=== PATIENT | female | born 1965 | race Caucasian/White ===

== ENCOUNTER → 2016-07-28 | Outpatient (CLI) | payer BC, OTHER ==
[~2016-07-28] MED LIST: AMBIEN10 MG PO; ATIVAN1 MG PO; ATIVAN2 MG PO; BACTRIM DS 8001 TAB PO; CALAN80 MG PO; CELEXA40 MG PO; CEPHALEXIN500 M1 PO; CHANTIX1 MG PO; CLONAZEPAM0.5 MG PO; CLOPIDOGREL; COQ10150 MG PO; DILAUDID 2MG TAB2 MG PO; DILAUDID 4MG TAB4 MG PO; DOXYCYCLINE 10100 MG PO; EFFEXOR PO; ELAVIL50 MG PO; ELITE MAGNESIUM1 TAB PO; FLEXERIL; FLONASE NASAL S16 GM NS; GRALISE600 MG PO; HYDROCODONE/APAP PO; KETOROLAC10 MG PO; LAMICTAL 25MG T25 MG PO; LAMICTAL ODT200 MG MM; LORTAB 5/500 501 TAB PO; MIDRIN; NORCO 325 MG-51 TAB PO; PHENERGAN 25 TA25 MG PO; PHENTERMINE; PRILOSEC 20MG20 MG PO; TOPAMAX 25MG25 M1 PO; TOPAMAX 25MG25 MG PO; TOPAMAX100 MG PO; TOPAMAX50 MG PO; TRAZODO50 MG PO; VERAPAMIL HCL80 MG PO; VITAMIN B2100 MG PO; ZOFRAN 4MG T4 MG/TAB PO; ZOMIG5 MG PO; ZONISAMIDE50 MG PO; [UNRECOGNIZED DRUG - OTHER] PO
== END ==
LOC: BHSO 15:31
DX: F41.1 Generalized anxiety disorder (principal)

== ENCOUNTER → 2016-12-08 | Outpatient (CLI) | payer BC, OTHER | LOC: BHSO 14:52 | DX: F31.73 Bipolar disorder, in partial remission, most recent episode manic (principal) ==

== ENCOUNTER → 2017-05-07 | Outpatient (CLI) | payer BC, OTHER | LOC: BHSO 14:46 | DX: F41.1 Generalized anxiety disorder (principal) | CPT/HCPCS: G0463 ==

== ENCOUNTER → 2017-08-13 | Outpatient (CLI) | payer BC, OTHER | LOC: BHSO 15:43 | DX: F31.81 Bipolar II disorder (principal) | CPT/HCPCS: G0463 ==

== ENCOUNTER → 2018-04-11 | Outpatient (CLI) | payer BC, OTHER | LOC: BHSO 07:51 | DX: F33.42 Major depressive disorder, recurrent, in full remission (principal) | CPT/HCPCS: G0463 ==

== ENCOUNTER → 2018-10-11 | Outpatient (CLI) | payer BC, OTHER | LOC: BHSO 10:46 | DX: F33.42 Major depressive disorder, recurrent, in full remission (principal) | CPT/HCPCS: G0463 ==

== ENCOUNTER → 2019-04-06 | Outpatient (CLI) | payer BC, OTHER | LOC: BHSO 08:39 | DX: F33.42 Major depressive disorder, recurrent, in full remission (principal) | CPT/HCPCS: G0463 ==

== ENCOUNTER → 2019-10-03 | Outpatient (CLI) | payer BC, OTHER | LOC: BHSO 10:09 | DX: F33.42 Major depressive disorder, recurrent, in full remission (principal) | CPT/HCPCS: G0463 ==

== ENCOUNTER → 2020-05-20 | Outpatient (CLI) | payer BC, OTHER | LOC: COL.RAD 12:36 | DX: S24.2XXA Injury of nerve root of thoracic spine, initial encounter (principal); M51.24 Other intervertebral disc displacement, thoracic region; M47.814 Spondylosis without myelopathy or radiculopathy, thoracic region ==

== ENCOUNTER 2020-10-23 16:17 | Emergency (ER) | payer BC, OTHER ==
[~2020-10-23] VITALS: Ht 157.5 cm; Wt 72.3 kg
[2020-10-23 16:33] VITALS: TEMP 98
[2020-10-23 17:34] VITALS: BP 124/81; PULSE 80
== END 2020-10-23 17:44 | disposition home or self-care (01) ==
LOC: COL.ER 16:17
DX: S59.902A Unspecified injury of left elbow, initial encounter (principal); S89.92XA Unspecified injury of left lower leg, initial encounter; F17.210 Nicotine dependence, cigarettes, uncomplicated; V19.9XXA Pedal cyclist (driver) (passenger) injured in unspecified traffic accident, initial encounter

== ENCOUNTER → 2023-02-22 | Outpatient (CLI) | payer BC, OTHER ==
[~2023-02-22] MED LIST changes: +BACTROBAN 22GM22 GM TP; +DOXYCYCLINE HY100 MG PO
== END ==
LOC: CANSCHCLI → COL.CARD 10:30 → COL.PUL 11:20 → COL.CARD 11:20
DX: J44.9 Chronic obstructive pulmonary disease, unspecified (principal)

== ENCOUNTER → 2023-02-25 | Outpatient (CLI) | payer BC, OTHER | LOC: COL.RAD 07:29 | DX: M25.551 Pain in right hip (principal) | CPT/HCPCS: J0665; J3301; Q9967 ==